=== PATIENT | female | born 1965 | race American Indian/Alaskan Native ===

== ENCOUNTER 2017-03-27 09:30 | Emergency (ER) | payer SELFPAY ==
[2017-03-27] MEDS ORDERED: ZESTRIL PO ONE (09:36)
--- NOTE | 2017-03-27 09:38 | Emergency Department Report ---
Chief Complaint: Urogenital-Female Stated Complaint: pain on urination Time Seen by Provider: 03/27/17 09:34 - HPI History of Present Illness: PT c/o dysuria x 2 days. PT States she just got off work and she has not taken her bp medication yet. - ROS Review of Systems: + dysuria - headache - cp - sob - Exam Physical Exam: obese female gcs 15 no cva tenderness MSE screening note: Focused history and physical exam performed. Due to findings the following was ordered: labs, meds ED Disposition for MSE Condition: Stable
[2017-03-27 10:00] LABS: Basophils % (Auto) 0.5 % (0.0-1.8); Eosinophils % (Auto) 2.7 % (0.0-4.3); Hemoglobin 11.7 gm/dl (10.1-14.3); Mean Corpuscular HGB Conc 32 % (30-34); Mean Corpuscular Volume 77 fl (79-97); Platelet Count 339 K/mm3 (140-440); Red Blood Count 4.82 M/mm3 (3.65-5.03); Red Cell Distribution Width 14.6 % (13.2-15.2); White Blood Count 7.1 K/mm3 (4.5-11.0)
[2017-03-27 10:14] LABS: Anion Gap 16 mmol/L; Blood Urea Nitrogen 14 mg/dL (7-17); Calcium 9.3 mg/dL (8.4-10.2); Carbon Dioxide 26 mmol/L (22-30); Glucose 113 mg/dL (65-100); Potassium 4.1 mmol/L (3.6-5.0); Sodium 141 mmol/L (137-145)
[2017-03-27 10:15] LABS: Mean Corpuscular Hemoglobin 24 pg (28-32)
[2017-03-27 10:26] LABS: Bilirubin,Urine NEG (Negative); Blood,Urine MOD (Negative); Ketones,Urine NEG (Negative); Leukocyte Esterase,Urine TR (Negative); Nitrite,Urine NEG (Negative); Protein,Urine <15 mg/dL mg/dL (Negative); Urobilinogen,Urine < 2.0 mg/dL (<2.0)
--- NOTE | 2017-03-27 11:29 | Emergency Department Report ---
ED Abdominal Pain HPI - General Chief Complaint: Urogenital-Female Stated Complaint: pain on urination Time Seen by Provider: 03/27/17 09:34 Source: patient Mode of arrival: Ambulatory Limitations: No Limitations - History of Present Illness Initial Comments: 51-year-old female here with complaint of abdominal pain, suprapubic discomfort. Patient is a known diabetic and was here approximately 10 days ago with similar symptoms. She received some medication and the symptoms resolved. 2 days ago the symptoms returned. She describes some dysuria. She has no flank pain, no fevers, no chills. She appears otherwise well. -: Sudden, days(s) (2) Location: suprapubic Radiation: none Migration to: no migration Severity: mild Quality: sharp Consistency: intermittent Improves With: nothing Worsens With: nothing Associated Symptoms: denies: nausea, vomiting, diarrhea, fever, chills, constipation, dysuria, hematemesis, hematochezia, melena, hematuria, anorexia - Related Data Previous Rx's Medication Instructions Recorded Last Taken Type Nitrofurantoin [place]/M-Cryst 100 mg PO Q12HR #6 capsule 03/27/17 Unknown Rx [Macrobid CAP] Allergies Allergy/AdvReac Type Severity Reaction Status Date / Time No Known Allergies Allergy Unverified 03/27/17 09:34 ED Review of Systems ROS: Stated complaint: pain on urination Other details as noted in HPI Comment: All other systems reviewed and negative Constitutional: denies: chills, fever Eyes: denies: eye pain, eye discharge, vision change ENT: denies: ear pain, throat pain Respiratory: denies: cough, shortness of breath, wheezing Cardiovascular: denies: chest pain, palpitations Endocrine: no symptoms reported Gastrointestinal: denies: abdominal pain, nausea, diarrhea Genitourinary: dysuria. denies: urgency, discharge Musculoskeletal: denies: back pain, joint swelling, arthralgia Skin: denies: rash, lesions Neurological: denies: headache, weakness, paresthesias Psychiatric: denies: anxiety, depression Hematological/Lymphatic: denies: easy bleeding, easy bruising ED Past Medical Hx - Past Medical History Previous Medical History?: Yes Hx Hypertension: Yes Hx Diabetes: Yes Hx Asthma: Yes - Surgical History Past Surgical History?: Yes Additional Surgical History: x 3 - Family History Family history: no significant - Social History Smoking Status: Never Smoker Substance Use Type: Prescribed - Medications Home Medications: Home Medications Medication Instructions Recorded Confirmed Last Taken Type Nitrofurantoin [place]/M-Cryst 100 mg PO Q12HR #6 capsule 03/27/17 Unknown Rx [Macrobid CAP] ED Physical Exam - General Limitations: No Limitations General appearance: alert, in no apparent distress, obese - Head Head exam: Present: atraumatic, normocephalic - Eye Eye exam: Present: normal appearance. Absent: scleral icterus, conjunctival injection - ENT ENT exam: Present: mucous membranes moist - Neck Neck exam: Present: normal inspection. Absent: lymphadenopathy - Respiratory Respiratory exam: Present: normal lung sounds bilaterally. Absent: respiratory distress, wheezes - Cardiovascular Cardiovascular Exam: Present: regular rate, normal rhythm, normal heart sounds. Absent: systolic murmur, diastolic murmur, rubs, gallop - GI/Abdominal GI/Abdominal exam: Present: soft, normal bowel sounds. Absent: distended, tenderness, guarding, rebound, rigid - Extremities Exam Extremities exam: Present: normal inspection - Back Exam Back exam: Present: normal inspection - Neurological Exam Neurological exam: Present: alert, oriented X3 - Psychiatric Psychiatric exam: Present: normal affect, normal mood - Skin Skin exam: Present: warm, dry, intact, normal color. Absent: rash ED Course Vital Signs 03/27/17 09:35 Temperature 98.1 F Pulse Rate 89 Respiratory 18 Rate Blood Pressure 197/120 O2 Sat by Pulse 100 Oximetry ED Medical Decision Making - Lab Data Result diagrams: 03/27/17 09:43 03/27/17 09:43 Laboratory Results - last 24 hr 03/27/17 03/27/17 03/27/17 09:43 09:43 09:51 WBC 7.1 RBC 4.82 Hgb 11.7 Hct 37.0 MCV 77 L MCH 24 L MCHC 32 RDW 14.6 Plt Count 339 Lymph % (Auto) 26.5 [place] % (Auto) 7.3 Eos % (Auto) 2.7 Baso % (Auto) 0.5 Lymph # 1.9 [place] # 0.5 Eos # 0.2 Baso # 0.0 Seg Neutrophils % 63.0 Seg Neutrophils # 4.5 Sodium 141 Potassium 4.1 Chloride 103.0 Carbon Dioxide 26 Anion Gap 16 BUN 14 Creatinine 0.8 Estimated GFR > 60 BUN/Creatinine Ratio 17.50 Glucose 113 H Calcium 9.3 Urine Color Straw Urine Turbidity Clear Urine pH 6.0 Ur Specific [place] 1.008 Urine Protein <15 mg/dl Urine Glucose (UA) Neg Urine Ketones Neg Urine Blood Mod Urine Nitrite Neg Urine Bilirubin Neg Urine Urobilinogen < 2.0 Ur Leukocyte Esterase Tr Urine WBC (Auto) 2.0 Urine RBC (Auto) 5.0 - Medical Decision Making 51-year-old female here with complaints of recurrent dysuria. Patient appears well and clinical exam. Her labs are unremarkable. She has 2 white blood cells and 5 red blood cells in her urine. Although I do not think this is likely a UTI will probably cover her for UTI and refer her to a urologist for follow-up of her symptoms. Portions of this chart were dictated with dictation software. There may be dictation errors contained within this note. Critical care attestation.: If time is entered above; I have spent that time in minutes in the direct care of this critically ill patient, excluding procedure time. ED Disposition Clinical Impression: Microscopic hematuria, Dysuria Disposition: TO HOME OR SELFCARE Is pt being admited?: No Condition: Stable Instructions: Dysuria (ED) Prescriptions: Nitrofurantoin [place]/M-Cryst [Macrobid CAP] 100 mg PO Q12HR #6 capsule Referrals: PRIMARY CARE, [Primary Care Provider] - 3-5 Days MINOR MAHMOOD MD [Staff Physician] - 3-5 Days (Call to establish an appointment. You may need a cystoscopy going forward.)
[2017-03-27 11:53] VITALS: BP 172/100
== END 2017-03-27 12:21 | disposition home or self-care (01) ==
LOC: ED 09:30
DX: R31.29 Other microscopic hematuria (principal); R30.0 Dysuria; I10 Essential (primary) hypertension; E11.9 Type 2 diabetes mellitus without complications; J45.909 Unspecified asthma, uncomplicated
CPT/HCPCS: 36415; 80048; 81001; 85025; 99283